=== PATIENT | male | born 1975 | race Caucasian/White ===

== ENCOUNTER 2016-09-23 14:57 | Emergency (ER) | payer BC, OTHER ==
[~2016-09-23 14:57] MED LIST: MACR100C3 PO; OMEP40CA2 PO; TRAM50TA PO
[2016-09-23 15:03] VITALS: BP 119/66; PULSE 97; RESP 17; TEMP 97.9; O2SAT 98
--- NOTE | 2016-09-23 15:10 | PD ---
HPI . chest pain since yesterday worse since 1 am Chief Complaint: Cardiac Complaint Time Seen by Provider: 15:09 Travel History International Travel<30 days: No Contact w/Intl Traveler<30days: No Traveled to known affect area: No History of Present Illness HPI 41-year-old male with history of GERD and kidney stones here with complaints of chest pain. Patient apparently went 4-wheeling and says that he smoked a brand of cigarettes that is not his usual brand and he developed some chest pain. He was not initially to concern, however at 1 AM this morning patient said the chest pain significantly worsened. He describes it as an elephant on his chest with sharp stabbing pain. The pain is substernal without radiation and associated with dizziness, shortness of breath and some diaphoresis. He rates the pain on a scale 8/10. He also tells me that he is experiencing some kidney pain for the past week intermittently and has had increasingly dark urine. He reports having similar issues in the past and was told there was something with his stomach, but says that this chest pain is different this time. He has no other complaints. PFSH Past Medical History Cardiovascular Problems: No Diminished Hearing: No Gastrointestinal Disorders: Yes GERD: Yes Genitourinary: Yes Kidney Stones: Yes Musculoskeletal: No Neurologic: No Reproductive: No Respiratory: Yes Past Surgical History Appendectomy: Yes Cholecystectomy: Yes Tonsillectomy: Yes Other Surgery: Yes (HX STENTS PLACED IN KIDNEYS) Social History Alcohol Use: Yes (SOCIALLY) Tobacco Use: Yes (04/04 PPD ) Substance Use: No Allergies-Medications (Allergen,Severity, Reaction): Coded Allergies: Aspirin (Verified Allergy, Severe, Anaphylaxis, 09/23/16) Fay (Verified Allergy, Severe, Anaphylaxis, 09/23/16) Toradol (Verified Allergy, Severe, Anaphylaxis, 09/23/16) Reported Meds & Prescriptions Reported Meds & Active Scripts Active Reported Ambien (Zolpidem Tartrate) 5 Mg Tab 5 Mg PO HS Xanax (Alprazolam) 1 Mg Tab 1 Mg PO BID Omeprazole 40 Mg Cap 40 Mg PO DAILY Review of Systems General / Constitutional: No: Fever Eyes: No: Visual changes HENT: No: Headaches Cardiovascular: Positive: Chest Pain or Discomfort, Diaphoresis Respiratory: Positive: Shortness of Breath Gastrointestinal: No: Abdominal Pain Genitourinary: No: Dysuria Musculoskeletal: No: Pain Skin: No Rash Neurologic: Positive: Dizziness, No: Weakness Psychiatric: No: Depression Endocrine: No: Polydipsia Hematologic/Lymphatic: No: Easy Bruising Physical Exam Narrative GENERAL: AAO x 3, no acute distress, Well-nourished, well-developed patient. SKIN: Warm and dry. No visible rashes or bruising. HEAD: Normocephalic and atraumatic. EYES: No scleral icterus. No injection or drainage. EOM intact, PERRLA ENT: No nasal drainage noted. Mucous membranes pink. Airway patent. NECK: Supple, trachea midline. No JVD. no lymphadenopathy CARDIOVASCULAR: Regular rate and rhythm without murmurs, gallops, or rubs. Nonreproducible chest pain. RESPIRATORY: Breath sounds equal bilaterally. No accessory muscle use. No rhonchi or rales. GASTROINTESTINAL: Abdomen soft, non-tender, nondistended. No rebound or guarding. no flank pain EXTREMITIES: No cyanosis or edema. BACK: Nontender without obvious deformity. No CVA tenderness. NEURO: CN II-12 intact, application support intern strength normal b/l, UE and LE 5/5, no focal deficits PSYCH: AAO x 3, normal affect. Data Data Last Documented VS Vital Signs Date Time Temp Pulse Resp B/P Pulse Ox O2 Delivery O2 Flow Rate FiO2 09/23/16 20:02 69 16 119/55 96 Room Air 09/23/16 15:03 97.9 Orders Electrocardiogram (09/23/16 15:10) Ckmb (Isoenzyme) Profile (09/23/16 15:10) Complete Blood Count With Diff (09/23/16 15:10) Comprehensive Metabolic Panel (09/23/16 15:10) D-Dimer (09/23/16 15:10) Magnesium (Mg) (09/23/16 15:10) Prothrombin Time / Inr (Pt) (09/23/16 15:10) Act Partial Throm Time (Ptt) (09/23/16 15:10) Troponin I (09/23/16 15:10) Chest, Single Ap (09/23/16 15:10) Ecg Monitoring (09/23/16 15:10) Bilateral Bp Monitoring (09/23/16 15:10) Iv Access Insert/Monitor (09/23/16 15:10) Oximetry (09/23/16 15:10) Oxygen Administration (09/23/16 15:10) Sodium Chloride 0.9% Flush (Ns Flush) (09/23/16 15:15) Urinalysis - C+S If Indicated (09/23/16 15:10) Morphine Inj (Morphine Inj) (09/23/16 15:15) Sodium Chlor 0.9% 1000 Ml Inj (Ns 1000 M (09/23/16 15:15) Ondansetron Inj (Zofran Inj) (09/23/16 15:45) CKMB (09/23/16 15:20) CKMB% (09/23/16 15:20) Electrocardiogram (09/23/16 18:20) Ckmb (Isoenzyme) Profile (09/23/16 18:20) Troponin I (09/23/16 18:20) Morphine Inj (Morphine Inj) (09/23/16 18:30) Labs Laboratory Tests Test 09/23/16 09/23/16 09/23/16 15:20 16:15 18:30 White Blood Count 7.7 TH/MM3 Red Blood Count 4.78 MIL/MM3 Hemoglobin 14.7 GM/DL Hematocrit 43.6 % Mean Corpuscular Volume 91.2 FL Mean Corpuscular Hemoglobin 30.6 PG Mean Corpuscular Hemoglobin 33.6 % Concent Red Cell Distribution Width 13.9 % Platelet Count 217 TH/MM3 Mean Platelet Volume 9.2 FL Neutrophils (%) (Auto) 65.2 % Lymphocytes (%) (Auto) 25.8 % Monocytes (%) (Auto) 7.1 % Eosinophils (%) (Auto) 1.6 % Basophils (%) (Auto) 0.3 % Neutrophils # (Auto) 5.0 TH/MM3 Lymphocytes # (Auto) 2.0 TH/MM3 Monocytes # (Auto) 0.5 TH/MM3 Eosinophils # (Auto) 0.1 TH/MM3 Basophils # (Auto) 0.0 TH/MM3 CBC Comment DIFF FINAL Differential Comment Prothrombin Time 10.7 SEC Prothromb Time International 1.0 RATIO Ratio Activated Partial 27.5 SEC Thromboplast Time D-Dimer Quantitative (PE/DVT) LESS THAN 0.19 MG/L FEU Sodium Level 143 MEQ/L Potassium Level 3.5 MEQ/L Chloride Level 109 MEQ/L Carbon Dioxide Level 25.5 MEQ/L Anion Gap 9 MEQ/L Blood Urea Nitrogen 15 MG/DL Creatinine 1.22 MG/DL Estimat Glomerular Filtration 66 ML/MIN Rate Random Glucose 84 MG/DL Calcium Level 9.4 MG/DL Magnesium Level 2.0 MG/DL Total Bilirubin 1.1 MG/DL Aspartate Amino Transf 12 U/L (AST/SGOT) Alanine Aminotransferase 38 U/L (ALT/SGPT) Alkaline Phosphatase 87 U/L Total Creatine Kinase 104 U/L 91 U/L Creatine Kinase MB 0.7 NG/ML Troponin I LESS THAN 0.02 LESS THAN 0.02 NG/ML NG/ML Total Protein 6.8 GM/DL Albumin 3.7 GM/DL Urine Color YELLOW Urine Turbidity HAZY Urine pH 6.5 Urine Specific [place] 1.018 Urine Protein TRACE mg/dL Urine Glucose (UA) NEG mg/dL Urine Ketones NEG mg/dL Urine Occult Blood MOD Urine Nitrite NEG Urine Bilirubin NEG Urine Urobilinogen LESS THAN 2.0 MG/DL Urine Leukocyte Esterase SMALL Urine RBC 126 /hpf Urine WBC 2 /hpf Urine Squamous Epithelial 1 /hpf Cells Urine Amorphous Sediment RARE Urine Bacteria OCC /hpf Urine Mucus FEW /lpf Microscopic Urinalysis Comment CULT NOT INDICATED MDM Medical Decision Making Medical Screen Exam Complete: Yes Emergency Medical Condition: Yes Medical Record Reviewed: Yes Differential Diagnosis Angina, ACS, pulmonary embolism, gastritis, muscle strain, Narrative Course 41-year-old male with GERD and nephrolithiasis here with complaints of chest pain, dizziness, shortness of breath since 1 AM. Initial EKG was reviewed by Dr. Lang and there is no evidence of an acute STEMI. There was some incomplete right bundle branch block. IV access was obtained, labs and imaging have been ordered. Morphine provided for pain control. Patient later reported to our nurse that he was experiencing some nausea and was given Zofran. Laboratory Tests Test 09/23/16 09/23/16 15:20 16:15 White Blood Count 7.7 TH/MM3 Red Blood Count 4.78 MIL/MM3 Hemoglobin 14.7 GM/DL Hematocrit 43.6 % Mean Corpuscular Volume 91.2 FL Mean Corpuscular Hemoglobin 30.6 PG Mean Corpuscular Hemoglobin 33.6 % Concent Red Cell Distribution Width 13.9 % Platelet Count 217 TH/MM3 Mean Platelet Volume 9.2 FL Neutrophils (%) (Auto) 65.2 % Lymphocytes (%) (Auto) 25.8 % Monocytes (%) (Auto) 7.1 % Eosinophils (%) (Auto) 1.6 % Basophils (%) (Auto) 0.3 % Neutrophils # (Auto) 5.0 TH/MM3 Lymphocytes # (Auto) 2.0 TH/MM3 Monocytes # (Auto) 0.5 TH/MM3 Eosinophils # (Auto) 0.1 TH/MM3 Basophils # (Auto) 0.0 TH/MM3 CBC Comment DIFF FINAL Differential Comment Prothrombin Time 10.7 SEC Prothromb Time International 1.0 RATIO Ratio Activated Partial 27.5 SEC Thromboplast Time D-Dimer Quantitative (PE/DVT) LESS THAN 0.19 MG/L FEU Sodium Level 143 MEQ/L Potassium Level 3.5 MEQ/L Chloride Level 109 MEQ/L Carbon Dioxide Level 25.5 MEQ/L Anion Gap 9 MEQ/L Blood Urea Nitrogen 15 MG/DL Creatinine 1.22 MG/DL Estimat Glomerular Filtration 66 ML/MIN Rate Random Glucose 84 MG/DL Calcium Level 9.4 MG/DL Magnesium Level 2.0 MG/DL Total Bilirubin 1.1 MG/DL Aspartate Amino Transf 12 U/L (AST/SGOT) Alanine Aminotransferase 38 U/L (ALT/SGPT) Alkaline Phosphatase 87 U/L Total Creatine Kinase 104 U/L Creatine Kinase MB 0.7 NG/ML Troponin I LESS THAN 0.02 NG/ML Total Protein 6.8 GM/DL Albumin 3.7 GM/DL Urine Color YELLOW Urine Turbidity HAZY Urine pH 6.5 Urine Specific [place] 1.018 Urine Protein TRACE mg/dL Urine Glucose (UA) NEG mg/dL Urine Ketones NEG mg/dL Urine Occult Blood MOD Urine Nitrite NEG Urine Bilirubin NEG Urine Urobilinogen LESS THAN 2.0 MG/DL Urine Leukocyte Esterase SMALL Urine RBC 126 /hpf Urine WBC 2 /hpf Urine Squamous Epithelial 1 /hpf Cells Urine Amorphous Sediment RARE Urine Bacteria OCC /hpf Urine Mucus FEW /lpf Microscopic Urinalysis Comment CULT NOT INDICATED Labs unremarkable except for hematuria on UA. I will order another set of CE at 1820 along with EKG and if negative, patient will be discharged home and need outpatient f/u. Hematuria could be related to kidney stones vs. other such as malignancy. I do not suspect acute kidney stones as he is not having any pain in his abdomen or back. He has no CVA tenderness. I recommend outpatient f/u. 1731: sharp shooting pains in left arm, I advised the nurse to go ahead and check another EKG. EKG unchanged. 1829: Patient still in pain. Another dose of morphine provided. 2020: Discussed results with patient. There is no elevation of cardiac enzymes. I discussed with patient and his hematuria, which he is aware of. I recommend follow-up on outpatient basis. I discussed the results with him and his . Laboratory Tests Test 09/23/16 09/23/16 09/23/16 15:20 16:15 18:30 White Blood Count 7.7 TH/MM3 Red Blood Count 4.78 MIL/MM3 Hemoglobin 14.7 GM/DL Hematocrit 43.6 % Mean Corpuscular Volume 91.2 FL Mean Corpuscular Hemoglobin 30.6 PG Mean Corpuscular Hemoglobin 33.6 % Concent Red Cell Distribution Width 13.9 % Platelet Count 217 TH/MM3 Mean Platelet Volume 9.2 FL Neutrophils (%) (Auto) 65.2 % Lymphocytes (%) (Auto) 25.8 % Monocytes (%) (Auto) 7.1 % Eosinophils (%) (Auto) 1.6 % Basophils (%) (Auto) 0.3 % Neutrophils # (Auto) 5.0 TH/MM3 Lymphocytes # (Auto) 2.0 TH/MM3 Monocytes # (Auto) 0.5 TH/MM3 Eosinophils # (Auto) 0.1 TH/MM3 Basophils # (Auto) 0.0 TH/MM3 CBC Comment DIFF FINAL Differential Comment Prothrombin Time 10.7 SEC Prothromb Time International 1.0 RATIO Ratio Activated Partial 27.5 SEC Thromboplast Time D-Dimer Quantitative (PE/DVT) LESS THAN 0.19 MG/L FEU Sodium Level 143 MEQ/L Potassium Level 3.5 MEQ/L Chloride Level 109 MEQ/L Carbon Dioxide Level 25.5 MEQ/L Anion Gap 9 MEQ/L Blood Urea Nitrogen 15 MG/DL Creatinine 1.22 MG/DL Estimat Glomerular Filtration 66 ML/MIN Rate Random Glucose 84 MG/DL Calcium Level 9.4 MG/DL Magnesium Level 2.0 MG/DL Total Bilirubin 1.1 MG/DL Aspartate Amino Transf 12 U/L (AST/SGOT) Alanine Aminotransferase 38 U/L (ALT/SGPT) Alkaline Phosphatase 87 U/L Total Creatine Kinase 104 U/L 91 U/L Creatine Kinase MB 0.7 NG/ML Troponin I LESS THAN 0.02 LESS THAN 0.02 NG/ML NG/ML Total Protein 6.8 GM/DL Albumin 3.7 GM/DL Urine Color YELLOW Urine Turbidity HAZY Urine pH 6.5 Urine Specific [place] 1.018 Urine Protein TRACE mg/dL Urine Glucose (UA) NEG mg/dL Urine Ketones NEG mg/dL Urine Occult Blood MOD Urine Nitrite NEG Urine Bilirubin NEG Urine Urobilinogen LESS THAN 2.0 MG/DL Urine Leukocyte Esterase SMALL Urine RBC 126 /hpf Urine WBC 2 /hpf Urine Squamous Epithelial 1 /hpf Cells Urine Amorphous Sediment RARE Urine Bacteria OCC /hpf Urine Mucus FEW /lpf Microscopic Urinalysis Comment CULT NOT INDICATED Patient verbalized understanding of instructions, questions were answered, and thanked me for their care. I advised them if their condition worsens, please return to the nearest emergency room for further care. Diagnosis Primary Impression: Chest pain Qualified Code: R07.89 - Other chest pain Additional Impression: Microscopic hematuria Patient Instructions: General Instructions Additional Instructions: Please follow-up with your primary care provider regarding the blood in your urine. Please return to emergency department if your symptoms return or worsen. Follow up with your primary care provider. Med/Other Pt SpecificInfo: No Change to Meds Disposition: 01 DISCHARGE HOME Condition: Stable Aliyah Park Sep 23, 2016 15:10
[2016-09-23] MEDS ORDERED: SODIUM CHLOR 0.9% 1000 ML INJ 1,000 ML IV ONE (15:15)
[2016-09-23] MEDS ORDERED: MORPHINE SULFATE 4 MG/ML INJ IV PUSH ONE ×2 (15:15→18:30)
[2016-09-23] MEDS ORDERED: SODIUM CHLORIDE 0.9% FLUSH 10 ML FLUSH IVF PRN (15:15)
[2016-09-23 15:27] VITALS: BP 121/60; PULSE 69; RESP 16; O2SAT 100
[2016-09-23] MEDS ORDERED: AMBI5TAB PO (15:31)
[2016-09-23] MEDS ORDERED: XANA1TAB2 PO (15:31)
[2016-09-23] MEDS ORDERED: ONDANSETRON HCL 4 MG/2 ML VIAL IV PUSH ONE (15:45)
[2016-09-23 15:47] LABS: BASOPHIL % 0.3 % (0.0-2.0); EOSINOPHIL # 0.1 TH/MM3 (0-0.4); EOSINOPHIL % 1.6 % (0.0-4.0); HEMATOCRIT 43.6 % (39.0-51.0); HEMO FLAGS DIFF FINAL; LYMPH % 25.8 % (9.0-44.0); MEAN CELL VOLUME 91.2 FL (80.0-100.0); MEAN CORPUSCULAR HEMOGLOBIN 30.6 PG (27.0-34.0); MEAN CORPUSCULAR HGB CONC 33.6 % (32.0-36.0); MONO % 7.1 % (0.0-8.0); NEUT % 65.2 % (16.0-70.0); PLATELET COUNT 217 TH/MM3 (150-450); RED BLOOD COUNT 4.78 MIL/MM3 (4.50-5.90); RED CELL DISTRIBUTION WIDTH 13.9 % (11.6-17.2); WHITE BLOOD COUNT 7.7 TH/MM3 (4.0-11.0)
--- NOTE | 2016-09-23 15:59 | RADRPT ---
EXAM DATE/TIME: 09/23/2016 15:21 [facility] COMPARISON: No previous studies available for comparison. INDICATIONS : Chest pain. MEDICAL HISTORY : None. SURGICAL HISTORY : None. ENCOUNTER: Initial ACUITY: 1 day PAIN SCORE: 0/10 LOCATION: Bilateral chest FINDINGS: A single view of the chest demonstrates the lungs to be symmetrically aerated without evidence of mas s, infiltrate or effusion. The cardiomediastinal contours are unremarkable. Osseous structures are intact. CONCLUSION: Normal examination. Chuck Juárez MD on September 23, 2016 at 15:57 Board Certified Radiologist. This report was verified electronically.
[2016-09-23 16:07] LABS: APTT (PATIENT) 27.5 SEC (24.3-30.1); PROTHROMBIN TIME - PATIENT 10.7 SEC (9.8-11.6)
[2016-09-23 16:09] LABS: ANION GAP 9 MEQ/L (5-15); AST (GOT) 12 U/L (15-37); BICARBONATE 25.5 MEQ/L (21.0-32.0); BLOOD UREA NITROGEN 15 MG/DL (7-18); CHLORIDE 109 MEQ/L (98-107); GLOMERULAR FILTRATION RATE 66 ML/MIN (>89); POTASSIUM 3.5 MEQ/L (3.5-5.1); SODIUM (NA) 143 MEQ/L (136-145)
[2016-09-23 16:14] LABS: ALKALINE PHOSPHATASE 87 U/L (45-117); ALT (GPT) 38 U/L (12-78); CREATINE KINASE 104 U/L (39-308); TOTAL BILIRUBIN ADULT 1.1 MG/DL (0.2-1.0)
[2016-09-23 16:26] LABS: CKMB 0.7 NG/ML (0.5-3.6)
[2016-09-23 16:47] LABS: BACTERIA, URINE OCC /hpf; BLOOD, URINE MOD (NEG); COMMENT (UR) CULT NOT INDICATED; CULTURE IF INDICATED CULT NOT INDICATED; GLUCOSE,URINE NEG (NEG); KETONE, URINE NEG (NEG); MUCUS URINE FEW /lpf (OCC); NITRITE,URINE NEG (NEG); PH, URINE 6.5 (5.0-8.5); SQUAMOUS EPITHELIAL CELL URINE 1 /hpf (0-5); URINE COLOR YELLOW (YELLW/STRAW)
[2016-09-23 17:36] VITALS: BP 133/68; PULSE 92; RESP 16; O2SAT 99
[2016-09-23 19:34] LABS: CREATINE KINASE 91 U/L (39-308)
[2016-09-23 20:02] VITALS: BP 119/55; PULSE 69; RESP 16; O2SAT 96
--- NOTE | 2016-09-25 07:55 | EKG ---
Date Performed: 09/23/2016 Time Performed: 17:34:09 PTAGE: 41 years EKG: Sinus rhythm WITH SINUS ARRHYTHMIA INCOMPLETE RIGHT BUNDLE BRANCH BLOCK BORDERLINE ECG PREVIOUS TRACING : 09/23/2016 15.10 DOCTOR: Angie Tejeda Interpretating Date/Time 09/25/2016 07:54:47
--- NOTE | 2016-09-25 08:37 | EKG ---
Date Performed: 09/23/2016 Time Performed: 15:10:33 PTAGE: 41 years EKG: Sinus rhythm INCOMPLETE RIGHT BUNDLE BRANCH BLOCK BORDERLINE ECG PREVIOUS TRACING : 03/26/2016 01.22 DOCTOR: Angie Tejeda Interpretating Date/Time 09/25/2016 08:35:05
== END 2016-09-23 20:51 | disposition home or self-care (01) ==
LOC: NEPC 14:57
DX: R07.9 Chest pain, unspecified (principal); R31.29 Other microscopic hematuria; F17.210 Nicotine dependence, cigarettes, uncomplicated; I45.10 Unspecified right bundle-branch block
CPT/HCPCS: 71010; 80053; 81001; 82550; 82552; 83735; 84484; 85025; 85379; 85610; 85730; 93005; 96361; 96374; 96375; 96376; 99285; J2270; J2405; J7030

== ENCOUNTER 2016-10-20 20:20 | Emergency (ER) | payer SELFPAY ==
[~2016-10-20] VITALS: Ht 170.2 cm; Wt 82.0 kg
[~2016-10-20 20:20] MED LIST changes: +CIPR-9 PO; +HYDR-3288 PO; -MACR100C3 PO; -TRAM50TA PO
[2016-10-20 20:22] VITALS: BP 105/66; PULSE 87; RESP 16; TEMP 97.8; O2SAT 100
== END 2016-10-20 21:15 | disposition left against medical advice (07) ==
LOC: NED 20:20
DX: R10.9 Unspecified abdominal pain (principal)
CPT/HCPCS: 99281

== ENCOUNTER 2017-01-05 11:55 | Emergency (ER) | payer MEDICAID, OTHER ==
[~2017-01-05] VITALS: Ht 170.2 cm; Wt 82.0 kg
[2017-01-05 11:58] VITALS: BP 110/70; PULSE 102; RESP 18; TEMP 98.8; O2SAT 99
[2017-01-05] MEDS ORDERED: SODIUM CHLOR 0.9% 1000 ML INJ 1,000 ML IV ONE (12:54)
[2017-01-05] MEDS ORDERED: ONDANSETRON HCL 4 MG/2 ML VIAL IV PUSH ONE (13:00)
[2017-01-05] MEDS ORDERED: MORPHINE SULFATE 4 MG/ML INJ IV PUSH ONE (13:00)
--- NOTE | 2017-01-05 13:11 | PD ---
HPI Chief Complaint: Complaint Time Seen by Provider: 12:54 Travel History International Travel<30 days: No Contact w/Intl Traveler<30days: No Traveled to known affect area: No History of Present Illness HPI STATES THAT HE HAS ANAPHYLAXIS REACTION TO TORADOL (WAS RECEIVED WHILE AT [facility] IN [place])...PATIENT C/O RIGHT FLANK PAIN, RAD TO GROIN AREA, , NOTED HEMATURIA AND DYSURIA PER PATIENT. PFSH Past Medical History Cardiovascular Problems: No Diminished Hearing: No Gastrointestinal Disorders: Yes GERD: Yes Genitourinary: Yes Kidney Stones: Yes Musculoskeletal: No Neurologic: No Reproductive: No Respiratory: Yes Tetanus Vaccination: < 5 Years Influenza Vaccination: No Past Surgical History Appendectomy: Yes Cholecystectomy: Yes Tonsillectomy: Yes Other Surgery: Yes (HX STENTS PLACED IN KIDNEYS) Family History Family Myocardial Infarction: Yes ( father) Social History Alcohol Use: Yes (SOCIALLY) Tobacco Use: Yes (2CIGS/DAY) Substance Use: No Allergies-Medications (Allergen,Severity, Reaction): Coded Allergies: aspirin (Unverified Allergy, Severe, Anaphylaxis, 01/05/17) ketorolac (Unverified Allergy, Severe, Anaphylaxis, 01/05/17) strawberry (Unverified Allergy, Severe, Anaphylaxis, 01/05/17) Reported Meds & Prescriptions Reported Meds & Active Scripts Active Reported Omeprazole 40 Mg Cap 40 Mg PO DAILY Review of Systems Except as stated in HPI: all other systems reviewed are Neg Physical Exam Narrative GENERAL: SKIN: Warm and dry. HEAD: Atraumatic. Normocephalic. EYES: Pupils equal and round. No scleral icterus. No injection or drainage. ENT: No nasal bleeding or discharge. Mucous membranes pink and moist. NECK: Trachea midline. No JVD. CARDIOVASCULAR: Regular rate and rhythm. RESPIRATORY: No accessory muscle use. Clear to auscultation. Breath sounds equal bilaterally. GASTROINTESTINAL: Abdomen soft, non-tender, nondistended. MUSCULOSKELETAL: Extremities without clubbing, cyanosis, or edema. No obvious deformities. NEUROLOGICAL: Awake and alert. No obvious cranial nerve deficits. Motor grossly within normal limits. Five out of 5 muscle strength in the arms and legs. Normal speech. PSYCHIATRIC: Appropriate mood and affect; insight and judgment normal. Data Data Last Documented VS Vital Signs Date Time Temp Pulse Resp B/P (MAP) Pulse Ox O2 Delivery O2 Flow Rate FiO2 01/05/17 12:59 100 22 01/05/17 11:58 98.8 110/70 (83) 99 Orders Orders Complete Blood Count With Diff (01/05/17 12:54) Comprehensive Metabolic Panel (01/05/17 12:54) Urinalysis - C+S If Indicated (01/05/17 12:54) Ecg Monitoring (01/05/17 12:54) Iv Access Insert/Monitor (01/05/17 12:54) Morphine Inj (Morphine Inj) (01/05/17 13:00) Ondansetron Inj (Zofran Inj) (01/05/17 13:00) Sodium Chlor 0.9% 1000 Ml Inj (Ns 1000 M (01/05/17 12:54) Lipase (01/05/17 13:45) Labs Laboratory Tests Test 01/05/17 13:00 01/05/17 14:15 White Blood Count 8.5 TH/MM3 Red Blood Count 4.76 MIL/MM3 Hemoglobin 14.9 GM/DL Hematocrit 44.7 % Mean Corpuscular Volume 93.9 FL Mean Corpuscular Hemoglobin 31.2 PG Mean Corpuscular Hemoglobin Concent 33.2 % Red Cell Distribution Width 13.0 % Platelet Count 195 TH/MM3 Mean Platelet Volume 9.0 FL Neutrophils (%) (Auto) 70.7 % Lymphocytes (%) (Auto) 23.2 % Monocytes (%) (Auto) 5.1 % Eosinophils (%) (Auto) 0.7 % Basophils (%) (Auto) 0.3 % Neutrophils # (Auto) 6.0 TH/MM3 Lymphocytes # (Auto) 2.0 TH/MM3 Monocytes # (Auto) 0.4 TH/MM3 Eosinophils # (Auto) 0.1 TH/MM3 Basophils # (Auto) 0.0 TH/MM3 CBC Comment DIFF FINAL Differential Comment Blood Urea Nitrogen 19 MG/DL Creatinine 0.94 MG/DL Random Glucose 90 MG/DL Total Protein 6.7 GM/DL Albumin 3.7 GM/DL Calcium Level 8.7 MG/DL Alkaline Phosphatase 82 U/L Aspartate Amino Transf (AST/SGOT) 12 U/L Alanine Aminotransferase (ALT/SGPT) 25 U/L Total Bilirubin 0.7 MG/DL Sodium Level 140 MEQ/L Potassium Level 4.0 MEQ/L Chloride Level 108 MEQ/L Carbon Dioxide Level 26.1 MEQ/L Anion Gap 6 MEQ/L Estimat Glomerular Filtration Rate 89 ML/MIN Lipase 115 U/L Urine Color YELLOW Urine Turbidity CLEAR Urine pH 6.5 Urine Specific [place] 1.026 Urine Protein TRACE mg/dL Urine Glucose (UA) NEG mg/dL Urine Ketones NEG mg/dL Urine Occult Blood NEG Urine Nitrite NEG Urine Bilirubin NEG Urine Urobilinogen LESS THAN 2.0 MG/DL Urine Leukocyte Esterase MOD Urine RBC 2 /hpf Urine WBC 2 /hpf Urine Squamous Epithelial Cells 1 /hpf Urine Bacteria RARE /hpf Urine Mucus FEW /lpf Microscopic Urinalysis Comment CULT NOT INDICATED MDM Medical Decision Making Medical Screen Exam Complete: Yes Emergency Medical Condition: Yes Medical Record Reviewed: Yes Interpretation(s) BEDSIDE LIMITED ULTRASOUND: SHOWS BILATERAL CALCIFICATIONS ON KIDNEYS BUT WITHOUT HYDRONEPHROSIS, NO PERICHOL FLUID/NO GB NOTED ON EXAMINATION....ALSO NO TARGET SIGN ON RLQ SWEEP. Differential Diagnosis KIDNEY STONES V PANCREATITIS V ELECTROLYTE ABNL V LIVER DZ Narrative Course NO NEED TO REPEAT CT ABD/PELVIS DUE TO BEDSIDE ULTRASOUND, CBC, CMP WERE WNL, AND UA SHOWED UTI WHICH WILL BE TREATED WITH OUTPATIENT ABX Diagnosis Primary Impression: Kidney stones Additional Impression: UTI (urinary tract infection) Qualified Codes: N30.00 - Acute cystitis without hematuria Patient Instructions: General Instructions, Kidney Stones (ED), Urinary Tract Infection in Men (ED) Scripts Codeine-Acetaminophen (Codeine-Acetaminophen) 30-300 mg Tab 1 TAB PO Q4H Y for PAIN, #24 TAB 0 Refills Prov: Jose A Lang MD 01/05/17 Nitrofurantoin Monohydrate Macrocrystals (Macrobid) 100 Mg Capsule 100 MG PO BID for Infection, #14 CAP 0 Refills Prov: Jose A Lang MD 01/05/17 Disposition: 01 DISCHARGE HOME Condition: Stable Jose A Lang MD Jan 05, 2017 13:11
[2017-01-05 13:21] LABS: BASOPHIL % 0.3 % (0.0-2.0); EOSINOPHIL # 0.1 TH/MM3 (0-0.4); EOSINOPHIL % 0.7 % (0.0-4.0); HEMATOCRIT 44.7 % (39.0-51.0); HEMO FLAGS DIFF FINAL; LYMPH % 23.2 % (9.0-44.0); MEAN CELL VOLUME 93.9 FL (80.0-100.0); MEAN CORPUSCULAR HEMOGLOBIN 31.2 PG (27.0-34.0); MEAN CORPUSCULAR HGB CONC 33.2 % (32.0-36.0); MONO % 5.1 % (0.0-8.0); NEUT % 70.7 % (16.0-70.0); PLATELET COUNT 195 TH/MM3 (150-450); RED BLOOD COUNT 4.76 MIL/MM3 (4.50-5.90); WHITE BLOOD COUNT 8.5 TH/MM3 (4.0-11.0)
[2017-01-05 13:35] LABS: ANION GAP 6 MEQ/L (5-15); AST (GOT) 12 U/L (15-37); BICARBONATE 26.1 MEQ/L (21.0-32.0); BLOOD UREA NITROGEN 19 MG/DL (7-18); CHLORIDE 108 MEQ/L (98-107); GLOMERULAR FILTRATION RATE 89 ML/MIN (>89); SODIUM (NA) 140 MEQ/L (136-145)
[2017-01-05 13:41] LABS: ALKALINE PHOSPHATASE 82 U/L (45-117); ALT (GPT) 25 U/L (12-78); TOTAL BILIRUBIN ADULT 0.7 MG/DL (0.2-1.0)
[2017-01-05 14:00] VITALS: BP 111/68; PULSE 98; RESP 18; O2SAT 98
[2017-01-05 14:30] LABS: BACTERIA, URINE RARE /hpf; BLOOD, URINE NEG (NEG); GLUCOSE,URINE NEG (NEG); KETONE, URINE NEG (NEG); MUCUS URINE FEW /lpf (OCC); NITRITE,URINE NEG (NEG); PH, URINE 6.5 (5.0-8.5); SQUAMOUS EPITHELIAL CELL URINE 1 /hpf (0-5); URINE COLOR YELLOW (YELLW/STRAW)
[2017-01-05 14:31] LABS: COMMENT (UR) CULT NOT INDICATED; CULTURE IF INDICATED CULT NOT INDICATED
[2017-01-05] MEDS ORDERED: CODE30TA2 PO (14:37)
[2017-01-05] MEDS ORDERED: MACR100C2 PO (14:37)
[2017-01-05 14:56] VITALS: RESP 18
== END 2017-01-05 15:19 | disposition home or self-care (01) ==
LOC: NEPE 11:55
DX: N20.0 Calculus of kidney (principal); N30.00 Acute cystitis without hematuria; Z72.0 Tobacco use; Z87.442 Personal history of urinary calculi
CPT/HCPCS: 80053; 81001; 83690; 85025; 96361; 96374; 96375; 99285; J2270; J2405; J7030